=== PATIENT | female | born 1985 | race African-American/Black ===

== ENCOUNTER 2018-02-15 03:56 | Emergency (ER) | payer OTHER ==
[~2018-02-15] VITALS: Ht 175.3 cm; Wt 64.0 kg
[2018-02-15] MEDS ORDERED: KETOROLAC 30MG/ML VIAL IV STA (06:39)
[2018-02-15] MEDS ORDERED: SODIUM CHLORIDE 0.9% 1,000 ML IV ONE (06:39)
[2018-02-15] MEDS ORDERED: ONDANSETRON HCL 4MG/2ML VIAL IV STA (06:39)
[2018-02-15 07:03] LABS: CLARITY URINE CLOUDY (CLEAR); COLOR URINE YELLOW (YELLOW); KETONES URINE NEGATIVE (NEGATIVE); LEUKOCYTE ESTERASE URINE 2+ (NEGATIVE); NITRITE URINE NEGATIVE (NEGATIVE); OCCULT BLOOD URINE 1+ (NEGATIVE); PROTEIN URINE NEGATIVE (NEGATIVE); SPECIFIC GRAVITY URINE 1.016 (1.005-1.030); UROBILINOGEN URINE 0.2 E.U./dL (0.2-1.0)
[2018-02-15 07:07] LABS: UCG SCREEN NEGATIVE
[2018-02-15 07:10] LABS: BASOPHILS % 0.4 % (0.0-2.0); EOSINOPHILS % 0.9 % (0.0-5.0); HEMATOCRIT. 42.7 % (36.0-48.0); HEMOGLOBIN. 14.6 g/dL (12.0-16.0); LYMPHOCYTES % 10.3 % (20.0-50.0); MEAN CORPUSCULAR HEMOGLOBIN 28.6 pg (28.0-32.0); MEAN CORPUSCULAR VOLUME 83.5 fL (81.0-99.0); MEAN PLATELET VOLUME 9.1 fl (7.4-10.4); MONOCYTES % 6.3 % (2.0-8.0); NEUTROPHILS % 82.1 % (40.0-76.0); PLATELET 267 x1000/uL (130-400); RED BLOOD CELL COUNT 5.11 mill/uL (4.2-5.4); RED CELL DISTRIBUTION WIDTH 14.5 % (11.6-14.6)
[2018-02-15 07:11] LABS: CHLORIDE 105 mEq/L (98-107)
[2018-02-15 07:46] VITALS: BP 118/69
== END 2018-02-15 07:51 | disposition home or self-care (01) ==
LOC: ER 04:03
DX: N39.0 Urinary tract infection, site not specified (principal); Z88.5 Allergy status to narcotic agent; Z88.8 Allergy status to other drugs, medicaments and biological substances
CPT/HCPCS: 36415; 80053; 81003; 81025; 83690; 85025; 99284; J7030